=== PATIENT | female | born 1970 | race Caucasian/White ===

== ENCOUNTER 2022-11-24 17:28 | Emergency (ER) | payer OTHER, SELFPAY ==
--- NOTE | ~2022-11-24 | US_ITS ---
EXAMINATION: US VENOUS ULTRASOUND WITH DOPPLER LOWER EXTREMITY, RIGHT CLINICAL INFORMATION: Pain. COMPARISON: None available. TECHNIQUE: Ultrasound of the deep veins is performed from the hip to the calf with compression sonography and color and pulse Doppler assessment. Spectral analysis with color-flow imaging is performed. FINDINGS: There is normal venous compression and respiratory variation and augmented flow. The visualized common femoral vein, superficial femoral vein, profunda femoral vein, popliteal vein, and the trifurcation region shows no evidence of deep venous thrombosis. There is no significant popliteal fossa cyst. There is a thrombosed superficial vein lateral right distal thigh at the area of pain. US/US venous duplex LE RT IMPRESSION: No DVT demonstrated in the right lower extremity. Thrombosed superficial vein lateral right thigh at the area of pain consistent with superficial thrombophlebitis.
[2022-11-24 17:49] VITALS: BP 150/96; PULSE 76; RESP 16; TEMP 36.5; O2SAT 98; BMI 40.0
--- NOTE | 2022-11-24 17:52 | ED_ITS ---
HPI - General Adult General Chief complaint: General Medical Stated complaint: ? blood clot in leg Time Seen by Provider: 11/24/22 18:43 Source: patient, RN notes reviewed and old records reviewed Mode of arrival: ambulatory Limitations: no limitations History of Present Illness HPI narrative: 52-year-old female presents for evaluation of redness and discomfort to her right thigh. 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 ? Denies any chest pain, shortness of breath Related Data Previous Rx's Medication Instructions Recorded azithromycin 250 mg tablet See Rx Instructions PO .COMPLEX #6 07/19/22 tabs Allergies Allergy/AdvReac Type Severity Reaction Status Date / Time SEASONAL ALLERGIES Allergy Mild ITCHY EYES Uncoded 07/19/22 16:23 Review of Systems 2 Constitutional: Constitutional: Denies chills, Denies fatigue and Denies fever(s) Cardiovascular: Cardiovascular: Denies chest pain and Denies dyspnea Respiratory: Respiratory: Denies cough and Denies dyspnea Gastrointestinal: Gastrointestinal: Denies abdominal pain, Denies nausea and Denies vomiting Integumentary/Breasts: Skin/Breast: Reports erythema and Reports skin pain Endocrine: Endocrine: Denies fatigue Physical Exam ED Vital Signs: Vital Signs - 24 hr 11/24/22 17:49 11/24/22 18:47 Temperature 97.7 F 98.2 F Pulse Rate 76 84 Respiratory Rate 16 16 Blood Pressure 150/96 H 145/87 H Pulse Oximetry 98 98 Oxygen Delivery Method Room Air Room Air BMI result Body Mass Index 40.0 Const General: healthy appearing, comfortable, no acute distress, alert and awake Nutritional Appearance: well nourished Orientation/consciousness: patient oriented x3 HENMT Head: Yes normocephalic and Yes atraumatic Throat: Yes posterior oropharynx normal Eyes Eyelids: Yes eyelids normal Conjunctivae: conjunctivae normal Sclerae: sclerae normal Corneas: corneas normal Pupils: Equal, round and reactive pupils present EOM: EOMs intact bilaterally Neck Neck: Yes full ROM Resp Effort & Inspection: normal respiratory effort Skin General skin exam: elasticity normal Neuro General: patient oriented x3 Cranial nerves: Yes Equal, round and reactive pupils present and Yes Bilaterally intact EOM present Cognition (Neuro): normal cognition Extrem Other: Moving all extremities well without any obvious deformities Course Course Course Narrative: RME: 52 yold female presents to the ED For right thigh pain with slight redness. debbi has pmh of DVT presents and was concerned blood clots. Labs ordered. US ordered of leg Medical Decision Making Medical Decision Making MDM Narrative: 52-year-old female presents for evaluation of a traumatic redness and pain to her right lateral thigh. There is no evidence of DVT on ultrasound. Given the patient has a history of DVT and factor 5 laden, I recommend she start a baby aspirin and use warm compresses to treat the phlebitis. She used to follow with Dr. Mendieta and will be given her phone number for follow-up to see if she should be on baby aspirin indefinitely. Differential Diagnosis Differential Diagnoses: The differential diagnosis associated with the presentation includes DVT Cellulitis Thrombophlebitis Contusion Lab Data [facility] Lab Attestation statement: I reviewed the patient's lab results. No leukocytosis or anemia. No significant electrolyte abnormalities. BUN is just below normal at 20 11/24/22 18:01 11/24/22 18:01 Labs: Lab Results 11/24/22 Range/Units 18:01 WBC 7.0 (4.8-10.8) X10*3/uL RBC 4.76 (4.20-5.50) X10*6/uL Hgb 14.1 (12.0-16.0) g/dl Hct 42.4 (37.0-47.0) % MCV 89.1 (80.0-98.0) fL MCH 29.6 (27.0-33.0) pg MCHC 33.3 (31.0-35.0) g/dl RDW 11.9 (11.0-16.0) % Plt Count 320 (160-400) X10*3/uL MPV 9.2 L (9.4-12.3) fL Immature Gran % (Auto) 0.1 (0.0-0.4) % Neut % (Auto) 65.6 (45-73) % Lymph % (Auto) 25.5 (20-40) % Gates % (Auto) 7.1 (2-11) % Eos % (Auto) 0.6 (0-4) % Baso % (Auto) 1.1 (0-2) % Lymph # (Auto) 1.8 (1.2-4.9) X10*3/uL Gates # (Auto) 0.5 (0.1-1.2) X10*3/uL Eos # (Auto) 0.0 (0.0-0.4) X10*3/uL Baso # (Auto) 0.1 (0.0-0.2) X10*3/uL Abs Immat Gran (auto) 0.01 (0.00-0.03) X10*3/uL Absolute Neuts (auto) 4.6 (2.0-8.3) x10*3/uL Absolute Nucleated RBC 0.000 (0.0-0.012) X10*3/uL Nucleated RBC % (auto) 0.0 (0.0-0.2) /100WBC PT 12.4 (11.1-13.3) SEC INR 1.0 (0.9-1.1) APTT 33.8 (26.0-36.4) SEC Sodium 142 (135-145) mmol/L Potassium 3.7 (3.3-5.1) mmol/L Chloride 108 (96-108) mmol/L Carbon Dioxide 20 L (22-29) mmol/L Anion Gap 18 (12-20) BUN 14 (9-16) mg/dL Creatinine 0.81 (0.5-1.4) mg/dL Estim Creat Clear Calc 105.6 Estimated GFR > 60 Random Glucose 86 (60-115) mg/dL Calcium 10.0 (8.4-10.2) mg/dL Total Bilirubin 0.8 (0.0-1.0) mg/dL AST 15 (5-31) U/L ALT 11 (0-31) U/L Alkaline Phosphatase 80 (39-117) U/L Total Protein 7.3 (6.5-8.0) g/dL Albumin 4.4 (3.5-5.0) g/dL Radiology Impression Discussion of test interpretation with radiology: I have reviewed the radiologist's reading. Radiologist Impression: Right lateral thigh superficial thrombophlebitis Discharge Plan Discharge Clinical Impression: Superficial thrombophlebitis Patient Disposition: Home, Self-Care Instructions: Superficial Thrombophlebitis (ED) Additional Instructions: Your ultrasound did not show any evidence of DVT. You do have superficial thrombophlebitis Given your history of factor 5, I recommend you start a baby aspirin for at least the next 2 weeks You may follow-up with your hematology/oncology doctor, Dr Mendieta to see if she would like you to be on a baby aspirin daily Prescriptions: No Action azithromycin 250 mg tablet See Rx Instructions PO .COMPLEX Qty: 6 0RF Rx Instructions: take 500 mg today (day 1), then 250 mg for 4 days (days 2-5) PO Referrals: Rayne Mendieta MD [Physician] - (hx DVT, factor V leiden, not anticoagulated. New superficial thrombophlebitis) Interventions: ED Discharge Assessment Last Done: 11/24/22 19:18 Discharge Date/Time: 11/24/22 19:19
[2022-11-24 18:07] LABS: MANUAL DIFF FLAG NO
[2022-11-24 18:11] LABS: Basophils Absolute Auto 0.1 X10*3/uL (0.0-0.2); Basophils Percent Auto 1.1 % (0-2); Eosinophils Percent Auto 0.6 % (0-4); Hematocrit 42.4 % (37.0-47.0); Hemoglobin 14.1 g/dl (12.0-16.0); Imm Gran Abs Auto 0.01 X10*3/uL (0.00-0.03); Imm Gran Pct Auto 0.1 % (0.0-0.4); Lymphocytes Absolute Auto 1.8 X10*3/uL (1.2-4.9); Lymphocytes Percent Auto 25.5 % (20-40); Mean Corpuscular HGB Conc 33.3 g/dl (31.0-35.0); Mean Corpuscular Hemoglobin 29.6 pg (27.0-33.0); Mean Corpuscular Volume 89.1 fL (80.0-98.0); Mean Platelet Volume 9.2 fL (9.4-12.3); Monocytes Absolute Auto 0.5 X10*3/uL (0.1-1.2); Monocytes Percent Auto 7.1 % (2-11); Neutrophils Absolute Auto 4.6 x10*3/uL (2.0-8.3); Neutrophils Percent Auto 65.6 % (45-73); Platelet Count 320 X10*3/uL (160-400); Red Blood Count 4.76 X10*6/uL (4.20-5.50); Red Cell Distribution Width 11.9 % (11.0-16.0)
[2022-11-24 18:15] LABS: Prothrombin Time 12.4 SEC (11.1-13.3)
[2022-11-24 18:18] LABS: Partial Thromboplastin Time 33.8 SEC (26.0-36.4)
[2022-11-24 18:22] LABS: Alanine Aminotransferase 11 U/L (0-31); Albumin Level 4.4 g/dL (3.5-5.0); Alkaline Phosphatase 80 U/L (39-117); Anion Gap 18 (12-20); Aspartate Amino Transferase 15 U/L (5-31); Bilirubin Total 0.8 mg/dL (0.0-1.0); Blood Urea Nitrogen 14 mg/dL (9-16); Carbon Dioxide 20 mmol/L (22-29); Chloride 108 mmol/L (96-108); Creatinine Clr Calc Pharmacy 105.6; Estimated Glomerular Filt Rate > 60; Glucose Random 86 mg/dL (60-115); Potassium 3.7 mmol/L (3.3-5.1); Sodium 142 mmol/L (135-145); Total Protein 7.3 g/dL (6.5-8.0)
[2022-11-24 18:47] VITALS: BP 145/87; PULSE 84; RESP 16; TEMP 36.8; O2SAT 98
== END 2022-11-24 19:19 | disposition home or self-care (01) ==
PROVIDERS: Physician Assistant; Emergency Provider Emergency Medicine
DX: I80.01 Phlebitis and thrombophlebitis of superficial vessels of right lower extremity (principal); M79.604 Pain in right leg; D68.51 Activated protein C resistance; Z86.718 Personal history of other venous thrombosis and embolism
CPT/HCPCS: 36415; 80053; 85025; 85610; 85730; 93971; 99283; 99284

== ENCOUNTER → 2022-11-30 15:17 | Outpatient (BNV) | payer OTHER, SELFPAY | PROVIDERS: PCP Internal Medicine; Visit Provider Internal Medicine Medical Oncology | DX: Z86.718 Personal history of other venous thrombosis and embolism (principal) | CPT/HCPCS: 99204 ==

== ENCOUNTER 2023-01-17 08:40 | Outpatient (AMB) | payer OTHER, SELFPAY ==
--- NOTE | 2023-01-17 09:05 | MHC.OFFWIV ---
Intake Vital Signs 01/17/23 09:07 Height 5 ft 7 in BMI Reason not done Patient refused/unable BP 132/80 Blood Pressure Location Lt brachial Position Sitting Pulse 87 Pulse Source Pulse Oximeter Temp 97.8 F Temp Source Temporal Artery Scan Pulse Oximetry (%) 98 Intake Visit Reasons: EP, sinus congestion, red eye ([phone]) Intake Note: pt is here for c.o sinus congestion, red eyes with watery, patient denies vision changes Patient Tobacco Use Status: Never used Tobacco Allergies SEASONAL ALLERGIES Allergy (Mild, Uncoded 01/17/23 09:30) ITCHY EYES Medication List - Last Reconciled 01/17/23 by Prashant Mancera MD aspirin 81 mg PO DAILY Do you need a note to return to daycare/school/sports/work: Yes HPI EP, sinus congestion, red eye ([phone]) HPI Details Patient presents for a sick visit. Reporting symptoms of sinus congestion, sore throat and difficulty swallowing. Low-grade fever. No family member is sick. No recent travel. Patient reports symptoms of malaise and fatigue. Patient is also complaining of redness in both her eyes. Symptoms started today. Increasing tearing. FORMERLY [facility], [facility]–1983 Medical History (Updated 11/30/22 @ 16:04 by Rayne Mendieta MD) Deep vein thrombosis (DVT) Surgical History (Updated 11/30/22 @ 15:45 by Rayne Mendieta MD) H/O: hysterectomy Family History (Updated 11/30/22 @ 15:23 by Jose Antonio Green) Other No family history of bleeding disorder Social History (Updated 11/30/22 @ 15:24 by Jose Antonio Green) Household Members: Spouse Patient Tobacco Use Status: Never used Tobacco service: No Current occupational status: employed Physical Exam Vital Signs: Last Vital Signs Temp 97.8 F 01/17/23 09:07 Pulse 87 01/17/23 09:07 BP 132/80 01/17/23 09:07 Pulse Ox 98 01/17/23 09:07 Const General: cooperative and healthy appearing Nutritional Appearance: well nourished Orientation/consciousness: patient oriented x3 Limitations: no limitations HEENT Head: Yes normal to inspection Eyes Other: Bilateral conjunctival congestion. Corneas clear. Anterior chambers clear. Neck Neck: Yes normal visual inspection Chest Chest palpation & inspection: normal palpation of entire chest wall Resp Effort & Inspection: normal respiratory effort Neuro General: patient oriented x3 Assessment & Plan Assessment & Plan (1) Upper respiratory tract infection: Code(s): J06.9 - Acute upper respiratory infection, unspecified Plan: Antibiotics ordered. Increase fluid intake. Tylenol for aches and pains. If symptoms worsen, follow-up here for a recheck. Coding Level of Care Code Est Pt Level 3 (18078) Diagnoses Upper respiratory tract infection J06.9
[2023-01-17 09:07] VITALS: BP 132/80; PULSE 87; TEMP 36.6; O2SAT 98
== END 2023-01-17 09:33 | disposition home or self-care (01) ==
PROVIDERS: PCP Internal Medicine; Visit Provider Internal Medicine
DX: J06.9 Acute upper respiratory infection, unspecified (principal)
CPT/HCPCS: 99213

== ENCOUNTER 2023-08-18 08:34 | Outpatient (AMB) | payer OTHER, SELFPAY ==
[2023-08-18 08:37] VITALS: BP 130/80; PULSE 74; TEMP 36.4; O2SAT 98; BMI 40.2
--- NOTE | 2023-08-18 08:37 | MHC.OFFWIV ---
Intake Vital Signs 08/18/23 08:37 Height 5 ft 7 in Weight 257 lb BMI 40.2 BP 130/80 Blood Pressure Location Lt brachial Position Sitting Pulse 74 Pulse Source Pulse Oximeter Temp 97.6 F Temp Source Temporal Artery Scan Pulse Oximetry (%) 98 Intake Visit Reasons: EP ? Right Ear Infection Intake Note: pt is here today for rt ear infection started 3days Patient Tobacco Use Status: Never used Tobacco Allergies SEASONAL ALLERGIES Allergy (Mild, Uncoded 08/18/23 08:42) ITCHY EYES Do you need a note to return to daycare/school/sports/work: No HPI HPI Comments History of Present Illness Details Patient is a 53-year-old female complaining of right-sided ear discomfort. She states it started 2 days ago and last night when she went to lay down to go to bed she started feeling dizzy. She says the ear is not actually painful but it is uncomfortable. She denies any fevers or changes in her hearing. She states she does have a history of ear infections and was told her ears do not drain properly. PFS Medical History (Updated 08/18/23 @ 08:54 by Anuja Damico PA-C) Deep vein thrombosis (DVT) Surgical History (Updated 11/30/22 @ 15:45 by Rayne Mendieta MD) H/O: hysterectomy Family History (Updated 11/30/22 @ 15:23 by Jose Antonio Green) Other No family history of bleeding disorder Social History (Updated 11/30/22 @ 15:24 by Jose Antonio Green) Household Members: Spouse Patient Tobacco Use Status: Never used Tobacco service: No Current occupational status: employed Review of Systems Const All systems reviewed & are unremarkable except as noted in HPI and below Physical Exam Vital Signs: Last Vital Signs Temp 97.6 F 08/18/23 08:37 Pulse 74 08/18/23 08:37 BP 130/80 08/18/23 08:37 Pulse Ox 98 08/18/23 08:37 BMI result Body Mass Index 40.2 Const General: cooperative, healthy appearing, comfortable and no acute distress Orientation/consciousness: patient oriented x3 Limitations: no limitations HEENT Head: Yes normal to inspection Ears: external ears normal, Abnormal EAC present (right) erythema and edema and TM abnormal (right) dull, wth effusion, erythematous, with fluid behind the TM and with loss of landmarks Eyes General: appearance normal, both eyes and all related structures Neck Neck: Yes normal visual inspection Resp Effort & Inspection: normal respiratory effort and able to speak in complete sentences Cardio Rate: regular rate Rhythm: regular rhythm Heart sounds: normal S1 and S2 Skin General skin exam: no rashes or lesions noted Neuro General: patient oriented x3 Extrem General: Yes normal to inspection and Yes no clubbing, cyanosis or edema Assessment & Plan Assessment & Plan (1) Otitis media: Code(s): H66.90 - Otitis media, unspecified, unspecified ear Qualifiers: Otitis media type: serous Chronicity: acute Laterality: right Recurrence: non-recurrent Qualified Code(s): H65.01 - Acute serous otitis media, right ear Plan: Sent amoxicillin to pharmacy (2) Otitis externa: Code(s): H60.90 - Unspecified otitis externa, unspecified ear Qualifiers: Otitis externa type: swimmer's ear Chronicity: acute Laterality: right Qualified Code(s): H60.331 - Swimmer's ear, right ear Plan: Sent eardrops to pharmacy Plan If no relief in symptoms, please follow-up with your primary care doctor Medications: New amoxicillin 875 mg PO Q12H 10 tabs 0RF [id number] 3.5-10,000-1 mg/mL-unit/mL-% 4 drps otic (ear) right Q8H 7 days 10 mL 0RF Coding Level of Care Code Est Pt Level 3 (27738) Diagnoses Non-recurrent acute serous otitis media of right ear H65.01 Otitis media type: serous Chronicity: acute Laterality: right Recurrence: non-recurrent Acute swimmer's ear of right side H60.331 Otitis externa type: swimmer's ear Chronicity: acute Laterality: right
== END 2023-08-18 09:06 | disposition home or self-care (01) ==
PROVIDERS: PCP Internal Medicine; Visit Provider Physician Assistant
DX: H65.01 Acute serous otitis media, right ear (principal); H60.331 Swimmer's ear, right ear
CPT/HCPCS: 99213

== ENCOUNTER 2023-10-02 08:20 | Outpatient (AMB) | payer OTHER, SELFPAY ==
--- NOTE | 2023-10-02 08:43 | MHC.OFFWIV ---
Intake Vital Signs 10/02/23 08:45 Height 5 ft 7 in Weight 258 lb BMI 40.4 BP 122/80 Blood Pressure Location Lt radial Position Sitting Pulse 81 Pulse Source Pulse Oximeter Temp 97.1 F Temp Source Oral Pulse Oximetry (%) 98 Oxygen Delivery Method Room Air Intake Visit Reasons: Rt side ear and neck pain Intake Note: pt c/o RT ear and neck pain. Started this morning at 3:30 am Patient Tobacco Use Status: Never used Tobacco Allergies SEASONAL ALLERGIES Allergy (Mild, Uncoded 10/02/23 08:44) ITCHY EYES Do you need a note to return to daycare/school/sports/work: No HPI Rt side ear and neck pain HPI Details This note is constructed using voice recognition software. While every effort has been made to ensure accuracy, knowledge architect errors may have been included. The patient is a 53 year old female who presents to the clinic today with right ear and neck pain since this morning. She notes that she had been swimming, and got some water in her ear. She had no fever, chills, did have pain that woke her up overnight and it seemed to get worse and then it felt slightly better. The pain radiated into her neck area. She tried hot packs and cold packs and they did not seem to help very much. Denies any hearing loss. Does feel that the pain has slightly improved through the rest of the night. REPLACED BY [facility] Medical History (Updated 08/18/23 @ 08:54 by Anuja Damico PA-C) Deep vein thrombosis (DVT) Surgical History (Updated 11/30/22 @ 15:45 by Rayne Mendieta MD) H/O: hysterectomy Family History (Updated 11/30/22 @ 15:23 by Jose Antonio Green) Other No family history of bleeding disorder Social History (Updated 11/30/22 @ 15:24 by Jose Antonio Green) Household Members: Spouse Patient Tobacco Use Status: Never used Tobacco service: No Current occupational status: employed Review of Systems Const All systems reviewed & are unremarkable except as noted in HPI and below Physical Exam Vital Signs: Last Vital Signs Temp 97.1 F 10/02/23 08:45 Pulse 81 10/02/23 08:45 BP 122/80 10/02/23 08:45 Pulse Ox 98 10/02/23 08:45 Oxygen Delivery Method Room Air 10/02/23 08:45 BMI result Body Mass Index 40.4 Const General: cooperative, healthy appearing, comfortable, no acute distress and alert Orientation/consciousness: patient oriented x3 Limitations: no limitations HEENT Head: Yes normal to inspection and Yes normocephalic Ears: hearing grossly normal bilaterally, TM normal on the left and TM abnormal perforated with clear discharge General nose exam: Normal external nose present Face and sinus: Yes normal facial exam and Yes sinuses nontender Mouth: Normal oral and palatal mucosa present and tongue normal Teeth and gingiva: dentition normal Throat: Yes posterior oropharynx normal Eyes General: appearance normal, both eyes and all related structures Neck Neck: Yes normal visual inspection, Yes full ROM and Yes no lymphadenopathy Resp Effort & Inspection: normal respiratory effort and able to speak in complete sentences Auscultation: clear to auscultation bilaterally Cardio Jugular venous distension: no JVD Palpation: normal PMI Rate: regular rate Heart sounds: S1 normal heart sound present, S2 normal heart sound present, no click, no gallops, no murmurs and no rubs Skin General skin exam: no rashes or lesions noted, elasticity normal and turgor normal Neuro General: patient oriented x3 Psych Appearance: grossly normal Mental Status: mental status grossly normal Speech and movement: Normal speech and movement present Affect: normal affect Assessment & Plan Assessment & Plan (1) Acute otitis media with perforated tympanic membrane: Code(s): H66.90 - Otitis media, unspecified, unspecified ear; H72.90 - Unspecified perforation of tympanic membrane, unspecified ear Qualifiers: Laterality: right Qualified Code(s): H66.91 - Otitis media, unspecified, right ear; H72.91 - Unspecified perforation of tympanic membrane, right ear Plan: Advised patient to avoid putting anything in the ear. Antimicrobial therapy ordered. Advised patient to take this until completed those. Advised follow up with worsening or failure to resolve. Discussed how this may take several weeks for this to completely resolve. Advised NSAIDs for pain management at home. Plan See above for full details and plan. Medications: New amoxicillin-pot clavulanate 875-125 mg 1 tab PO BID 7 days 14 tabs 0RF Coding Level of Care Code Est Pt Level 3 (80004) Diagnoses Acute otitis media of right ear with perforated tympanic membrane H66.91; H72.91 Laterality: right
[2023-10-02 08:45] VITALS: BP 122/80; PULSE 81; TEMP 36.2; O2SAT 98; BMI 40.4
== END 2023-10-02 09:16 | disposition home or self-care (01) ==
PROVIDERS: PCP Internal Medicine; Visit Provider Registered Nurse
DX: H66.91 Otitis media, unspecified, right ear (principal); H72.91 Unspecified perforation of tympanic membrane, right ear
CPT/HCPCS: 99213